=== PATIENT | female | born 1970 | race Asian ===

== ENCOUNTER 2017-11-21 13:47 | Outpatient (CLI) | payer BC ==
--- NOTE | 2017-11-21 14:28 | MMO ---
BILATERAL SCREENING MAMMOGRAM: INDICATION: Annual exam. COMPARISON: Prior exam dated 04/21/15. FINDINGS: The interpretation of this examination was assisted with computer-aided detection. The breast parenchyma is heterogeneously dense. No suspicious mass, cluster of microcalcifications, or area of architectural distortion is grossly ev ident. IMPRESSION: BI-RADS category 1 - negative. Recommend routine annual mammographic screening. BIRADS 1: Negative Routine annual screening mammography (for women over age 40) POS: [facility]AL
== END 2017-11-21 13:48 | disposition home or self-care (01) ==
LOC: SCSMAMMO 13:47
PROVIDERS: ATTEND Family Medicine
DX: Z12.31 Encounter for screening mammogram for malignant neoplasm of breast (principal)
CPT/HCPCS: 77067